=== PATIENT | female | born 1980 | race Caucasian/White ===

== ENCOUNTER → 2021-06-11 | Outpatient (CLI) | payer OTHER | LOC: LAB 10:24 | DX: Z32.00 Encounter for pregnancy test, result unknown (principal) | CPT/HCPCS: 36415; 84702 ==

== ENCOUNTER 2021-07-13 20:38 | Emergency (ER) | payer OTHER ==
[2021-07-13 21:36] LABS: HEMOGLOBIN 11.1 gm/dl (12.3-15.3); RED BLOOD COUNT 4.8 M/UL (4.00-5.10); WHITE BLOOD COUNT 9.9 K/UL (4.5-11.0)
[2021-07-13 21:59] LABS: BUN/CREATININE RATIO 14 (0-10)
[2021-07-13] MEDS ORDERED: OMNICEF 300 MG300 MG PO (23:11)
[2021-07-13] MEDS ORDERED: BENTYL 20MG TAB20 MG PO (23:11)
[2021-07-13] MEDS ORDERED: REGLAN10 MG PO (23:11)
== END 2021-07-13 23:15 | disposition home or self-care (01) ==
LOC: ER1 20:38
PROVIDERS: Physician Assistant
DX: O20.0 Threatened abortion (principal); O23.41 Unspecified infection of urinary tract in pregnancy, first trimester; Z3A.08 8 weeks gestation of pregnancy
CPT/HCPCS: 76817; 80053; 81001; 84702; 85025; 86850; 86900; 86901; 87086; 99284

== ENCOUNTER → 2021-07-16 | Day surgery (SDC) | payer OTHER ==
[~2021-07-16] MED LIST: BENTYL 20MG TAB20 MG PO; OMNICEF 300 MG300 MG PO; REGLAN10 MG PO
== END | disposition home or self-care (01) ==
LOC: OR 05:45
DX: O02.1 Missed abortion (principal); Z20.822 Contact with and (suspected) exposure to COVID-19
CPT/HCPCS: J1100; J1885; J2001; J2250; J2405; J2704; J3010; J7030; J7120